=== PATIENT | male | born 1955 | race Caucasian/White ===

== ENCOUNTER 2020-01-21 01:40 | Outpatient (CLI) | payer MEDICARE, BC, SELFPAY ==
[2020-01-21 16:16] LABS: SARS-CoV-2 RNA PCR Negative
== END 2020-01-21 01:41 | disposition home or self-care (01) ==
LOC: ANHCOVIDDT 01:40
PROVIDERS: PCP Family Medicine; Visit Provider Internal Medicine Gastroenterology
DX: Z01.812 Encounter for preprocedural laboratory examination (principal); Z11.59 Encounter for screening for other viral diseases
CPT/HCPCS: 87635; C9803; U0003

== ENCOUNTER 2020-01-23 01:16 | Day surgery (SDC) | payer MEDICARE, BC, SELFPAY ==
[2020-01-15 13:32] VITALS: BMI 33.2
[2020-01-23 07:49] VITALS: BP 116/63; PULSE 68; RESP 20; TEMP 36.4; O2SAT 98
[2020-01-23] MEDS: LACTATED RINGERS 1,000 ML 150 ML IV CONT (08:11)
[2020-01-23 08:23] LABS: Glucose Point of Care 139 (65-105)
--- NOTE | 2020-01-23 08:50 | WPDGICN ---
GI Consult Note Consult date/time: 01/23/20 08:50 HPI: Heath Littlejohn is a 64 year old male Seen in evaluation at the request of DR China Hampton. patient in usual state of health. Had a positive screening colo guard test. Patient reports his current weight appetite bowel movements are normal. He denies abdominal pain. His weight appetite are all normal. He denies any blood in his stools. Family history is noncontributory. Past medical history is significant for diabetes mellitus. Review of Systems Review of Systems: All systems reviewed & are unremarkable except as noted in HPI and below PMFSH Social History Social History Gender identity (if verbalized by the patient): Male Meds Home Medications and Allergies Home Medications Medication Instructions Recorded Confirmed Type ascorbic acid (vitamin C) [Vitamin 500 mg PO BID 01/15/20 01/15/20 History C] bupropion HCl [Wellbutrin XL] 300 mg PO DAILY 01/15/20 01/15/20 History cholecalciferol (vitamin D3) 50 mcg PO DAILY 01/15/20 01/15/20 History dabigatran etexilate [Pradaxa] 150 mg PO BID 01/15/20 01/15/20 History dapagliflozin [Farxiga] 10 mg PO DAILY 01/15/20 01/15/20 History enalapril maleate [Vasotec] 5 mg PO DAILY 01/15/20 01/15/20 History fluoxetine 60 mg PO DAILY 01/15/20 01/15/20 History gabapentin [Neurontin] 300 mg PO DAILY 01/15/20 01/15/20 History insulin glargine [Lantus U-100 46 unit SUBCUT 01/15/20 01/15/20 History Insulin] meclizine 12.5 mg PO 01/15/20 01/15/20 History metformin 500 mg PO BID 01/15/20 01/15/20 History omega [id number]-fish oil [Fish Oil] 2 cap PO BID 01/15/20 01/15/20 History omeprazole 20 mg PO BID 01/15/20 01/15/20 History pramipexole 0.125 mg PO DAILY 01/15/20 01/15/20 History sertraline 50 mg PO DAILY 01/15/20 01/15/20 History simvastatin 40 mg PO HS 01/15/20 01/15/20 History sitagliptin [Januvia] 100 mg PO DAILY 01/15/20 01/15/20 History sotalol 80 mg PO BID 01/15/20 01/15/20 History Allergies Allergy/AdvReac Type Severity Reaction Status Date / Time codeine AdvReac Mild NUTTY Verified 01/23/20 07:48 Vital Signs Vital Signs - 24 hr 01/23/20 07:49 Temperature 97.5 F L Pulse Rate 68 Respiratory Rate 20 Blood Pressure 116/63 Pulse Oximetry 98 Exam Narrative: Exam Narrative: physical exam reveals patient to be alert. Vital signs are stable. HEENT exam unremarkable. Lungs are clear to auscultation and percussion. Heart is without murmur or extra sounds. Abdominal exam bowel sounds are present soft nontender with no hepatosplenomegaly. Digital external rectal exam is normal.
--- NOTE | 2020-01-23 08:53 | P.PNAN_ITS ---
Anes - Initial Pre Proc Eval Procedure: Operation Date: 01/23/20 09:00 Proposed Procedures p Colonoscopy - Neel Ha MD Date/Time: 01/23/20 08:53 Surgeon: Neel Ha MD Pre Op Diagnosis: positive cologuard Patient Data Age: 64 Gender: M Height: 5 ft 9 in Weight: 98.4 kg Last Vital Signs Temp 97.5 F L 01/23/20 07:49 Pulse 68 01/23/20 07:49 Resp 20 01/23/20 07:49 BP 116/63 01/23/20 07:49 Pulse Ox 98 01/23/20 07:49 Allergies Allergy/AdvReac Type Severity Reaction Status Date / Time codeine AdvReac Mild NUTTY Verified 01/23/20 07:48 Home Medications Medication Instructions Recorded Confirmed Type ascorbic acid (vitamin C) [Vitamin 500 mg PO BID 01/15/20 01/15/20 History C] bupropion HCl [Wellbutrin XL] 300 mg PO DAILY 01/15/20 01/15/20 History cholecalciferol (vitamin D3) 50 mcg PO DAILY 01/15/20 01/15/20 History dabigatran etexilate [Pradaxa] 150 mg PO BID 01/15/20 01/15/20 History dapagliflozin [Farxiga] 10 mg PO DAILY 01/15/20 01/15/20 History enalapril maleate [Vasotec] 5 mg PO DAILY 01/15/20 01/15/20 History fluoxetine 60 mg PO DAILY 01/15/20 01/15/20 History gabapentin [Neurontin] 300 mg PO DAILY 01/15/20 01/15/20 History insulin glargine [Lantus U-100 46 unit SUBCUT 01/15/20 01/15/20 History Insulin] meclizine 12.5 mg PO 01/15/20 01/15/20 History metformin 500 mg PO BID 01/15/20 01/15/20 History omega 0-xif-kti-fish oil [Fish Oil] 2 cap PO BID 01/15/20 01/15/20 History omeprazole 20 mg PO BID 01/15/20 01/15/20 History pramipexole 0.125 mg PO DAILY 01/15/20 01/15/20 History sertraline 50 mg PO DAILY 01/15/20 01/15/20 History simvastatin 40 mg PO HS 01/15/20 01/15/20 History sitagliptin [Januvia] 100 mg PO DAILY 01/15/20 01/15/20 History sotalol 80 mg PO BID 01/15/20 01/15/20 History Laboratory Tests 01/23/20 08:03 POC Capillary Glucose 139 mg/dl H mg/dl (65-105) Patient hx anesthesia problems: none Family hx anesthesia problems: none [facility] Past Medical History Medical History (Updated 01/23/20 @ 08:52 by Jose Martinez MD) Atrial fibrillation Diabetes Hyperlipidemia Hypertension PRAVEEN (obstructive sleep apnea) Social History Social History Gender identity (if verbalized by the patient): Male Anes - Eval Final PreProcedure Day of Procedure 01/23/20 08:53 Patient weight: obese Heart: regular rate and rhythm Lungs: clear to auscultation Airway: Mallampati scale class III Neurological: alert and oriented Last oral intake: >/= 8 hours ASA classification: III Emergent: no Anesthetic plan: proceed Anesthesia type and monitoring: general GIVS and standard monitoring Informed Consent: The patient's anesthetic plan and its attendant risks and benefits were discussed with the patient/family/POA. Questions were solicited and answers provided to the satisfaction of the patient/family/POA.
[2020-01-23 09:13] VITALS: BP 99/56; PULSE 67; RESP 17; O2SAT 99
[2020-01-23 09:23] VITALS: BP 99/59; PULSE 68; RESP 17; O2SAT 97
[2020-01-23 09:32] VITALS: BP 113/69; PULSE 61; RESP 14; O2SAT 98
[2020-01-23 09:42] LABS: Glucose Point of Care 139 (65-105)
== END 2020-01-23 09:53 | disposition home or self-care (01) ==
PROVIDERS: PCP Family Medicine; Visit Provider Internal Medicine Gastroenterology
PROC: 0DJD8ZZ Inspection of Lower Intestinal Tract, Via Natural or Artificial Opening Endoscopic (ICD-10-PCS; CPT 45378; principal; 2020-01-23 09:00)
DX: R19.5 Other fecal abnormalities (principal); K64.8 Other hemorrhoids; K57.30 Diverticulosis of large intestine without perforation or abscess without bleeding; I48.91 Unspecified atrial fibrillation; I10 Essential (primary) hypertension; E11.9 Type 2 diabetes mellitus without complications; E78.5 Hyperlipidemia, unspecified; G47.33 Obstructive sleep apnea (adult) (pediatric); Z79.84 Long term (current) use of oral hypoglycemic drugs; Z79.01 Long term (current) use of anticoagulants; Z79.4 Long term (current) use of insulin; E66.9 Obesity, unspecified; Z68.32 Body mass index [BMI] 32.0-32.9, adult
CPT/HCPCS: G0105; J2704; J7120